=== PATIENT | male | born 1995 | race Hispanic/Latino ===

== ENCOUNTER 2019-11-03 14:03 | Outpatient (CLI) | payer BC ==
--- NOTE | 2019-11-03 15:41 | MRI ---
MRI RIGHT FINGER WITHOUT CONTRAST: 11/03/19 HISTORY: Injury. COMPARISON: None. FINDINGS: BONES: There is contusion of the small finger proximal phalanx head and neck as well as middle phalanx base extending to the mid diaphysis. There is subtle lateral subluxation of the proximal interphalangeal j oint approximately 2 mm. LIGAMENTS: There is a full thickness tear of the accessory ulnar collateral ligament of the proximal interphalan geal joint of the small finger. The ulnar collateral ligament proper is intact. The radial collateral ligament is intact. The accessory radial lateral collateral ligament is intact. The volar plate is completely torn. The checkrein is torn. The flexor tendons appear to be intact. There is a tear of the extensor purdy laterally at the level o f the proximal phalanx neck. The sagittal band is intact. The central flip does have normal insertion . The lateral bands appear to be intact. The pulleys are felt to be intact. IMPRESSION: 1. Healing contusions of the small finger proximal phalanx head/neck and middle phalanx base. 2. Rupture of the small finger proximal interphalangeal joint volar plate and proximal checkrein avulsion. 3. Rupture of the accessory ulnar collateral ligament of the small finger proximal interphalange al joint. 4. 1-2 mm medial subluxation of the small finger middle phalanx relative to the proximal phalanx . 5. Tear of the extensor purdy just to the medial midline to the level of the proximal phalanx nec k just before the lateral band take off. POS: HOME
== END 2019-11-03 14:04 | disposition home or self-care (01) ==
LOC: BICMRI 14:03
PROVIDERS: ATTEND Orthopaedic Surgery Hand Surgery
DX: S63.286A Dislocation of proximal interphalangeal joint of right little finger, initial encounter (principal); S69.91XA Unspecified injury of right wrist, hand and finger(s), initial encounter; S60.051D Contusion of right little finger without damage to nail, subsequent encounter; S63.636A Sprain of interphalangeal joint of right little finger, initial encounter